=== PATIENT | male | born 1975 ===

== ENCOUNTER → 2024-05-24 06:48 | Outpatient (CLI) | payer OTHER ==
[2024-05-24 07:23] LABS: PH,URINE 5.5 (5.0-8.0); URINE APPEARANCE Clear; URINE BILIRRUBIN Negative (NEGATIVE); URINE BLOOD Negative; URINE COLOR Yellow; URINE GLUCOSE Negative (NEGATIVE); URINE LEUKOCYTE Negative; URINE NITRATE Negative; URINE PROTEIN Negative (NEGATIVE); URINE UROBILINOGEN 0.2 E.U./dl
[2024-05-24 07:27] LABS: URINE EPITHELIAL CELLS 1.5 uL (0.0-38.8); URINE WBC 4.3 uL (0.0-23.2)
[2024-05-24 07:28] LABS: URINE RBC 1.3 uL (0.0-20.8)
[2024-05-24 08:08] LABS: HEMATOCRIT 45.1 % (39.0-48.0); HEMOGLOBIN 15.6 g/dL (13-16.00); MEAN CELL VOLUME 90.8 fL (80.0-100.00); MEAN CORPUSCULAR HEMOGLOBIN 31.4 pg (27.00-32.0); MEAN CORPUSCULAR HGB CONC 34.6 g/dl (32.0-36.0); PLATELET COUNT 203 K/uL (150-450); RED BLOOD COUNT 4.97 M/uL (4.00-6.00); RED CELL DISTRIBUTION WIDTH 13.3 % (11.5-14.5)
[2024-05-24 08:27] LABS: BILIRUBIN TOTAL 0.52 mg/dL (0.3-1.2); CALCIUM 9.2 mg/dL (8.5-10.1); CREATININE SERUM 0.81 mg/dL (0.70-1.30); GFR 102.14; GLOBULINA 3.1 G/DL (2.4-3.5); POTASSIUM 4.49 mEq/L (3.5-5.1); PROSTATIC SPECIFIC ANTIGEN 1.58 NG/ML (0.010-4.00); TOTAL PROTEIN 7.1 gm/dL (6.4-8.2); TSH 2.41 uIU/mL (0.358-3.74)
[2024-05-24 08:29] LABS: CHOL HDL RATIO 8.1 (0-5.0)
== END | disposition home or self-care (01) ==
LOC: LAB 06:48
PROVIDERS: ATTEND Specialist
DX: I11.9 Hypertensive heart disease without heart failure (principal); E78.2 Mixed hyperlipidemia; E11.9 Type 2 diabetes mellitus without complications; E03.9 Hypothyroidism, unspecified; D50.9 Iron deficiency anemia, unspecified; R82.90 Unspecified abnormal findings in urine; N42.89 Other specified disorders of prostate; I10 Essential (primary) hypertension; Z87.442 Personal history of urinary calculi; Z12.5 Encounter for screening for malignant neoplasm of prostate

== ENCOUNTER 2024-05-24 07:20 | Outpatient (CLI) | payer OTHER | END 2024-05-24 07:28 | disposition home or self-care (01) | LOC: RAD 07:20 | PROVIDERS: ATTEND Urology | DX: N42.89 Other specified disorders of prostate (principal); I10 Essential (primary) hypertension; Z87.442 Personal history of urinary calculi ==

== ENCOUNTER → 2024-11-13 07:20 | Outpatient (CLI) | payer OTHER ==
[2024-11-13 08:31] LABS: HEMATOCRIT 42.5 % (39.0-48.0); HEMOGLOBIN 14.9 g/dL (13-16.00); MEAN CELL VOLUME 88.9 fL (80.0-100.00); MEAN CORPUSCULAR HEMOGLOBIN 31.1 pg (27.00-32.0); PLATELET COUNT 210 K/uL (150-450); RED BLOOD COUNT 4.79 M/uL (4.00-6.00); RED CELL DISTRIBUTION WIDTH 13.5 % (11.5-14.5)
[2024-11-13 09:32] LABS: BILIRUBIN TOTAL 1.02 mg/dL (0.3-1.2); CALCIUM 9.4 mg/dL (8.5-10.1); CHOL HDL RATIO 3.6 (0-5.0); CREATININE SERUM 0.75 mg/dL (0.70-1.30); GFR 111.15; GLOBULINA 3.1 G/DL (2.4-3.5); POTASSIUM 4.48 mEq/L (3.5-5.1); TOTAL PROTEIN 7.1 gm/dL (6.4-8.2); TSH 1.7 uIU/mL (0.358-3.74)
== END | disposition home or self-care (01) ==
LOC: LAB 07:20
PROVIDERS: ATTEND Internal Medicine
DX: I10 Essential (primary) hypertension (principal); E78.2 Mixed hyperlipidemia; R73.03 Prediabetes; E03.8 Other specified hypothyroidism